=== PATIENT | male | born 1970 | race Hispanic/Latino ===

== ENCOUNTER 2017-05-14 11:05 | Emergency (ER) | payer OTHER ==
[2017-05-14] MEDS: PERCOCET 5MG/325MG TAB PO (11:49)
== END 2017-05-14 14:33 | disposition home or self-care (01) ==
LOC: M ED 11:05
DX: S82.102A Unspecified fracture of upper end of left tibia, initial encounter for closed fracture (principal); W55.22XA Struck by cow, initial encounter; Y92.9 Unspecified place or not applicable; Y93.9 Activity, unspecified; Z88.0 Allergy status to penicillin
CPT/HCPCS: 73564